=== PATIENT | female | born 1975 | race Caucasian/White ===

== ENCOUNTER 2018-03-10 15:49 | Emergency (ER) | payer MEDICAID, OTHER ==
[2018-03-10] MEDS: IBUPROFEN 800 MG TAB PO (20:04)
== END 2018-03-10 22:06 | disposition home or self-care (01) ==
LOC: E/R 15:49
DX: R07.9 Chest pain, unspecified (principal); E11.9 Type 2 diabetes mellitus without complications; Z79.82 Long term (current) use of aspirin; Z79.84 Long term (current) use of oral hypoglycemic drugs
CPT/HCPCS: 71045; 81025; 93005; 99284-25